=== PATIENT | male | born 1980 | race Caucasian/White ===

== ENCOUNTER 2016-09-05 15:52 | Emergency (ER) | payer MEDICAID, OTHER ==
[~2016-09-05] VITALS: Ht 175.3 cm; Wt 65.0 kg
[~2016-09-05 15:52] MED LIST: CYCL-36 PO; DICL50 PO
[2016-09-05] MEDS ORDERED: PRENATAL VITAMIN CHEWABLE TAB CHEW ONE (16:00)
[2016-09-05] MEDS ORDERED: THIAMINE INJ 100 MG in SODIUM CHLORIDE 0.9% INJ 100 ML IV ONE (16:00)
[2016-09-05] MEDS ORDERED: SODIUM CHLOR 0.9% 1000 ML INJ 1,000 ML IV ONE (16:00)
[2016-09-05 16:09] VITALS: BP 112/65; PULSE 91; RESP 18; TEMP 97.6; O2SAT 97
--- NOTE | 2016-09-05 16:17 | PD ---
HPI . Intoxication Chief Complaint: Intoxication Time Seen by Provider: 15:57 Travel History International Travel<30 days: No Contact w/Intl Traveler<30days: No History of Present Illness HPI The patient is brought to us by law enforcement under the [place] [place]. He was reportedly found unconscious on someone's back porch. The officer noted that the patient smelled strongly of alcohol the patient was very difficult to awaken. The patient had no idea where he was. He was unable to stand under his own power. He was then placed in protective custody and brought to the emergency department. The patient states that he feels fine now. He has no physical complaints. PFSH Past Medical History Cardiovascular Problems: No Diminished Hearing: No Genitourinary: No Immune Disorder: No Musculoskeletal: No Neurologic: No Psychiatric: No Reproductive: No Respiratory: No Past Surgical History Abdominal Surgery: No Cardiac Surgery: No Ear Surgery: No Endocrine Surgery: No Eye Surgery: No Genitourinary Surgery: No Gynecologic Surgery: No Oral Surgery: No Thoracic Surgery: No Social History Alcohol Use: No (OCCASIONALLY BUT NOT OFTEN) Tobacco Use: Yes (CHEWING TOBACCO) Substance Use: Yes Allergies-Medications (Allergen,Severity, Reaction): Coded Allergies: No Known Allergies (Verified , 11/24/14) Reported Meds & Prescriptions Reported Meds & Active Scripts Active Flexeril (Cyclobenzaprine HCl) 10 Mg Tab 10 Mg PO TID Voltaren (Diclofenac Sodium) 50 Mg Tabec 50 Mg PO TID Review of Systems Except as stated in HPI: all other systems reviewed are Neg General / Constitutional: No: Fever, Chills HENT: No: Headaches Cardiovascular: No: Chest Pain or Discomfort Respiratory: No: Shortness of Breath Gastrointestinal: No: Nausea, Vomiting, Diarrhea, Abdominal Pain Genitourinary: No: Urgency, Frequency, Dysuria Musculoskeletal: No: Myalgias, Arthralgias Psychiatric: Positive: Substance Abuse (patient reports alcohol and narcotic abuse.), No: Suicidal Ideations Physical Exam Narrative GENERAL: Disheveled, intoxicated young man SKIN: Warm and dry. HEAD: Atraumatic. Normocephalic. EYES: Pupils equal and round. Conjunctiva injected. ENT: No nasal bleeding or discharge. Mucous membranes pink and moist. NECK: Trachea midline. Neck supple. CARDIOVASCULAR: Regular rate and rhythm. Heart sounds normal. RESPIRATORY: No accessory muscle use. Lungs are clear with full air movement throughout. GASTROINTESTINAL: Abdomen soft, non-tender, nondistended. MUSCULOSKELETAL: No obvious deformities. No edema. NEUROLOGICAL: Awake and alert. No obvious cranial nerve deficits. Motor grossly within normal limits. Normal speech. PSYCHIATRIC: Appropriate mood and affect; insight and judgment is poor. Data Data Last Documented VS Vital Signs Date Time Temp Pulse Resp B/P Pulse Ox O2 Delivery O2 Flow Rate FiO2 09/05/16 16:09 97.6 91 18 112/65 97 Orders Complete Blood Count With Diff (09/05/16 15:57) Comprehensive Metabolic Panel (09/05/16 15:57) Drug Screen, Random Urine (09/05/16 15:57) Alcohol (Ethanol) (09/05/16 15:57) Sodium Chlor 0.9% 1000 Ml Inj (Ns 1000 M (09/05/16 16:00) Thiamine Inj (Thiamine Inj) (09/05/16 16:00) [id number]-Ibp-[id number]-Iron Prena Chew ( (09/05/16 16:00) Potassium Chloride (Kcl) (09/05/16 17:45) Magnesium Oxide (Mag-Ox) (09/05/16 17:45) Labs Laboratory Tests Test 09/05/16 09/05/16 16:45 16:55 White Blood Count 7.9 TH/MM3 Red Blood Count 4.45 MIL/MM3 Hemoglobin 13.3 GM/DL Hematocrit 37.6 % Mean Corpuscular Volume 84.5 FL Mean Corpuscular Hemoglobin 29.8 PG Mean Corpuscular Hemoglobin 35.3 % Concent Red Cell Distribution Width 14.3 % Platelet Count 177 TH/MM3 Mean Platelet Volume 6.6 FL Neutrophils (%) (Auto) 49.4 % Lymphocytes (%) (Auto) 38.7 % Monocytes (%) (Auto) 7.7 % Eosinophils (%) (Auto) 3.4 % Basophils (%) (Auto) 0.8 % Neutrophils # (Auto) 3.9 TH/MM3 Lymphocytes # (Auto) 3.1 TH/MM3 Monocytes # (Auto) 0.6 TH/MM3 Eosinophils # (Auto) 0.3 TH/MM3 Basophils # (Auto) 0.1 TH/MM3 CBC Comment DIFF FINAL Differential Comment Sodium Level 145 MEQ/L Potassium Level 3.2 MEQ/L Chloride Level 108 MEQ/L Carbon Dioxide Level 26.3 MEQ/L Anion Gap 11 MEQ/L Blood Urea Nitrogen 14 MG/DL Creatinine 1.07 MG/DL Estimat Glomerular Filtration 79 ML/MIN Rate Random Glucose 113 MG/DL Calcium Level 8.6 MG/DL Total Bilirubin 0.3 MG/DL Aspartate Amino Transf 37 U/L (AST/SGOT) Alanine Aminotransferase 52 U/L (ALT/SGPT) Alkaline Phosphatase 86 U/L Total Protein 7.0 GM/DL Albumin 3.8 GM/DL Ethyl Alcohol Level 171 MG/DL Urine Opiates Screen NEG Urine Barbiturates Screen NEG Urine Amphetamines Screen POS Urine Benzodiazepines Screen NEG Urine Cocaine Screen POS Urine Cannabinoids Screen POS MDM Medical Decision Making Medical Screen Exam Complete: Yes Emergency Medical Condition: Yes Differential Diagnosis Differential diagnosis of altered mental status includes but is not limited to infection, electrolyte abnormality, neurological event, intoxication Narrative Course Patient presents in the custody of police department for public intoxication. The patient was found passed out on someone's back porch. CBC is normal. Potassium is 3.2. Drug screen is positive for amphetamines, cocaine, THC. Alcohol level is 171. 5:45 PM The patient is now medically clear. Diagnosis Primary Impression: Acute alcohol intoxication Qualified Code: F10.120 - Acute alcohol intoxication, uncomplicated Additional Impression: Polysubstance abuse Disposition: 01 DISCHARGE HOME Condition: Stable Perla Reddy MD Sep 05, 2016 16:17
[2016-09-05 17:04] LABS: AUTOMATED NEUTROPHIL # 3.9 TH/MM3 (1.8-7.7); BASOPHIL # 0.1 TH/MM3 (0-0.2); BASOPHIL % 0.8 % (0.0-2.0); EOSINOPHIL # 0.3 TH/MM3 (0-0.4); EOSINOPHIL % 3.4 % (0.0-4.0); HEMATOCRIT 37.6 % (39.0-51.0); HEMO FLAGS DIFF FINAL; LYMPH % 38.7 % (9.0-44.0); LYMPHOCYTE # 3.1 TH/MM3 (1.0-4.8); MEAN CELL VOLUME 84.5 FL (80.0-100.0); MEAN CORPUSCULAR HEMOGLOBIN 29.8 PG (27.0-34.0); MEAN CORPUSCULAR HGB CONC 35.3 % (32.0-36.0); MONO % 7.7 % (0.0-8.0); NEUT % 49.4 % (16.0-70.0); PLATELET COUNT 177 TH/MM3 (150-450); RED BLOOD COUNT 4.45 MIL/MM3 (4.50-5.90); RED CELL DISTRIBUTION WIDTH 14.3 % (11.6-17.2); WHITE BLOOD COUNT 7.9 TH/MM3 (4.0-11.0)
[2016-09-05 17:16] LABS: AMPHETAMINE, URINE POS (NEG); BARBITURATES, URINE NEG (NEG); COCAINE, URINE POS (NEG)
[2016-09-05 17:26] LABS: ALT (GPT) 52 U/L (12-78); ANION GAP 11 MEQ/L (5-15); AST (GOT) 37 U/L (15-37); BICARBONATE 26.3 MEQ/L (21.0-32.0); BLOOD UREA NITROGEN 14 MG/DL (7-18); CHLORIDE 108 MEQ/L (98-107); GLOMERULAR FILTRATION RATE 79 ML/MIN (>89); POTASSIUM 3.2 MEQ/L (3.5-5.1); SODIUM (NA) 145 MEQ/L (136-145)
[2016-09-05 17:28] LABS: ALKALINE PHOSPHATASE 86 U/L (45-117); TOTAL BILIRUBIN ADULT 0.3 MG/DL (0.2-1.0)
[2016-09-05] MEDS ORDERED: POTASSIUM CHLORIDE 20 MEQ CONTROLLED RELEASE TAB PO ONE (17:45)
[2016-09-05] MEDS ORDERED: MAGNESIUM OXIDE 400 MG TAB PO ONE (17:45)
== END 2016-09-06 00:34 | disposition home or self-care (01) ==
LOC: NEDAMB 15:52
DX: F10.120 Alcohol abuse with intoxication, uncomplicated (principal); F15.10 Other stimulant abuse, uncomplicated; F14.10 Cocaine abuse, uncomplicated; Y90.6 Blood alcohol level of 120-199 mg/100 ml
CPT/HCPCS: 80053; 80307; 80320; 85025; 99284

== ENCOUNTER 2016-09-06 00:47 | Emergency (ER) | payer MEDICAID, OTHER ==
[~2016-09-06] VITALS: Ht 177.8 cm; Wt 75.0 kg
[2016-09-06 00:49] VITALS: BP 117/74; PULSE 77; RESP 14; TEMP 97.7; O2SAT 100
== END 2016-09-06 04:30 | disposition left against medical advice (07) ==
LOC: NED 00:47
DX: F99 Mental disorder, not otherwise specified (principal)
CPT/HCPCS: 99281